=== PATIENT | male | born 1955 | race Caucasian/White ===

== ENCOUNTER 2025-07-16 09:20 | Day surgery (SDC) | payer MEDICARE ==
--- NOTE | 2025-07-16 07:21 | HP ---
HISTORY OF PRESENT ILLNESS: A 70-year-old in for changing bowel movements, increased gas feeling in the past year. No prior colonoscopy. Denies bloody stools. Denies family history of colon or gastric cancer. Had stomach wall thickening in the past. PAST MEDICAL HISTORY: Hypertension, heart disease, hyperlipidemia, reflux. MEDICATIONS: Rosuvastatin, omeprazole, metoprolol succinate, clopidogrel, amlodipine, as well as the marijuana gummies. ALLERGIES: No known drug allergies. PAST SURGICAL HISTORY: Femoral stent and angioplasty in the past, had back surgery in the past. SOCIAL HISTORY: Former smoker, 6 drinks a day, uses marijuana gummies for sleep and arthritis. FAMILY HISTORY: Diabetes. REVIEW OF SYSTEMS: Twelve systems reviewed. No chest pain or palpitations. All other systems negative or noncontributory as noted above and per preadmission questionnaire. PHYSICAL EXAMINATION: GENERAL: No acute distress. VITAL SIGNS: Height 6 feet 1 inch. BMI 28.37. HEENT: Sclerae nonicteric. NECK: No JVD. CHEST: Equal excursion, nonlabored breathing. CARDIOVASCULAR: Regular rate and rhythm. ABDOMEN: Soft. SKIN: Dry. EXTREMITIES: No cyanosis or edema. NEUROLOGIC: Alert and oriented. Moving all extremities symmetrically. PSYCHIATRIC: Appropriate mood and affect. IMPRESSION: The patient was refusing colonoscopy at this point and was agreeable to upper endoscopy to evaluate for gastritis, peptic ulcer disease, celiac, or other etiology. PLAN: We will schedule outpatient MAC anesthesia EGD with possible biopsy. If it is negative, he was then later agreeable, considering colonoscopy and schedule at a later date but at this time, he is not agreeing with colonoscopy. We will proceed with EGD with possible biopsy as an outpatient. Otherwise, continue medications for hypertension, hyperlipidemia, reflux, and heart disease.
[2025-07-16] MEDS: Lactated Ringers 1,000 ML IV SCH (09:28)
[2025-07-16] MEDS ORDERED: Xylocaine-Mpf 2% 5 Ml Vial ONE (11:40)
[2025-07-16] MEDS ORDERED: propofoL IV ONE ×2 (11:40→12:00)
[2025-07-16 12:17] VITALS: RESP 16
[2025-07-16 12:31] VITALS: BP 139/89; PULSE 84; TEMP 97.6; O2SAT 99
--- NOTE | 2025-07-17 10:06 | OP ---
SURGERY DATE/TIME: 07/16/2025 1521-1192 PREOPERATIVE DIAGNOSIS: History of some abnormal CT scan with some gastric wall thickening and history of some bloating and gas, need for upper endoscopy. Patient had history of some change in bowel habits but declined colonoscopy at this time. POSTOPERATIVE DIAGNOSES: 1) Some mild chronic gastritis. 2) Minimal esophageal erythema. PROCEDURE: 1) Esophagogastroduodenoscopy, cold biopsy of small bowel to evaluate for celiac sprue, cold biopsy of antrum to evaluate for Helicobacter pylori. 2) Cold biopsy of epigastric body, slight thickening of the rugae without any gross evidence of any obvious mass. Cold biopsy of distal esophagus to evaluate for early short segment or early inflammation. SURGEON: Juan M Smart MD TRANSFORMATION CONSULTANT: Rudy Colon MS3 ANESTHESIA: MAC. QUANTITATIVE BLOOD LOSS: Minimal. INDICATIONS: Consent was obtained. DESCRIPTION OF PROCEDURE AND FINDINGS: Patient was taken to the operating room, MAC anesthesia was induced. After official time-out and no disagreement in planned procedure, bite block positioned. Videogastroscope passed down the esophagus through patent pylorus to the junction of the third and fourth portions of duodenum. Duodenum fairly unremarkable. Given his recent issue, he was felt to warrant cold biopsy to evaluate for celiac. Good hemostasis noted. Scope pulled back in the stomach. He had some gastric erythema consistent with some early mild gastritis. Cold biopsy was taken in the antrum. Apparently, later the staff had lost the specimen. A cold biopsy had been taken of the gastric body. He had a little bit of thickening of the rugae, but it looked pretty smooth. It seemed to be benign-appearing on appearance, but as he had thickening on the CAT scan, random cold biopsies taken of the gastric body for histologic evaluation. On retroflexion, there were no signs of any large hiatal hernia. GE junction seemed to be fairly snug against the scope. Scope pulled back. GE junction was about 39 cm. Z-line was fairly clear. There was just a little bit of erythema. Distal esophagus cold biopsy was taken to evaluate for early inflammation versus normal variation. Remainder of esophagus grossly unremarkable. No signs of any masses or other mucosal lesions. Scope was withdrawn. The family was not in the room initially, but I did speak with the family in the postop consultation room later. We will see him back in the office in 1 week or so to go over the results.
== END 2025-07-16 12:37 | disposition home or self-care (01) ==
LOC: SDC 09:20
PROVIDERS: ATTEND Surgery
DX: K29.70 Gastritis, unspecified, without bleeding (principal); K31.89 Other diseases of stomach and duodenum; R14.0 Abdominal distension (gaseous); K22.89 Other specified disease of esophagus